=== PATIENT | male | born 1995 | race Caucasian/White ===

== ENCOUNTER 2018-03-01 15:29 | Emergency (ER) | payer BC ==
[~2018-03-01] VITALS: Ht 177.8 cm; Wt 122.7 kg
[2018-03-01 16:26] VITALS: Ht 177.8 cm; Wt 122.7 kg
[2018-03-01 17:08] LABS: BASOPHILS 0.3 % (0-2); EOSINOPHILS 0.1 % (0-7); HEMATOCRIT 48.7 % (42.0-54.0); HEMOGLOBIN 17.8 g/dL (13.5-17.5); IMMATURE GRANULOCYTES 0.3 % (0-5); LYMPHOCYTES 13.8 % (15-50); MCH 31.2 pg (26.0-34.0); MCHC 36.6 g/dL (31.0-37.0); MCV 85.3 fL (80.0-100.0); MEAN PLATELET VOLUME 10.8 fL (7.4-10.4); MONOCYTES 6.6 % (2-11); NEUTROPHILS 78.9 % (40-80); PLATELET COUNT 241 10x3/uL (130-400); RBC 5.71 10x6/uL (4.20-6.10); RDW 13.1 % (11.5-14.5); WBC 11.9 10x3/uL (4.8-10.8)
[2018-03-01 17:11] LABS: APPEARANCE CLEAR (CLEAR); BILIRUBIN NEGATIVE (NEGATIVE); COLOR DK YELLOW (YELLOW); GLUCOSE NEGATIVE (NEGATIVE); KETONE MODERATE mg/dL (NEGATIVE); NITRITE NEGATIVE (NEGATIVE); PROTEIN NEGATIVE (NEGATIVE); SPECIFIC GRAVITY 1.015 (1.005-1.020); UROBILINOGEN NORMAL (NORMAL)
[2018-03-01 17:14] LABS: BACTERIA FEW /hpf (NONE SEEN); EPITHELIAL CELLS OCC /hpf (0-5); MUCUS >1+ /lpf (NONE SEEN); WHITE CELLS - URINE 0-5 /hpf (0-5)
[2018-03-01 17:15] LABS: GRANULAR CAST RARE /lpf (NONE SEEN)
[2018-03-01 17:33] LABS: ALBUMIN 4.9 g/dL (3.4-5.0); ALKALINE PHOSPHATASE 51 U/L (46-116); ALT (SGPT) 54 U/L (10-68); BILIRUBIN - TOTAL 2.63 mg/dL (0.2-1.3); CALC OSMOLALITY 269 mosm/kg (275-300); CALCIUM 9.7 mg/dL (8.5-10.1); CHLORIDE - SERUM 97 mmol/L (98-107); CREATININE - SERUM 1.1 mg/dL (0.6-1.3); GLUCOSE 101 mg/dL (74-106); POTASSIUM - SERUM 3.5 mmol/L (3.5-5.1); PROTEIN - SERUM 8.3 g/dL (6.4-8.2); SODIUM 135 mmol/L (136-145); UREA NITROGEN 13 mg/dL (7-18); eGFR NON AFRICAN AMERICAN > 90 mL/min (90-120)
[2018-03-01] MEDS ORDERED: FLAGYL500 MG PO (22:14)
[2018-03-01] MEDS ORDERED: TYLENOL W/CODEI1 TAB PO (22:14)
[2018-03-01] MEDS ORDERED: ZOFRAN ODT4 MG/UDTAB PO (22:14)
[2018-03-01] MEDS ORDERED: PROTONIX40 MG PO (22:14)
[2018-03-01 22:47] VITALS: BP 143/88
== END 2018-03-01 22:35 | disposition home or self-care (01) ==
LOC: D.ER 15:29
PROVIDERS: Family Medicine
DX: R10.13 Epigastric pain (principal); R11.2 Nausea with vomiting, unspecified

== ENCOUNTER → 2018-03-12 06:28 | Outpatient (CLI) | payer BC ==
[2018-03-01 16:26] VITALS: BMI 38.8
[~2018-03-12 06:28] MED LIST: FLAGYL500 MG PO; NORCO 7.5/325 T1 TA1 PO; PROTONIX40 MG PO; TYLENOL W/CODEI1 TAB PO; ZOFRAN ODT4 MG/UDTAB PO; ZOFRAN4 MG PO
== END | disposition home or self-care (01) ==
LOC: D.US 06:28
DX: R11.2 Nausea with vomiting, unspecified (principal)

== ENCOUNTER → 2018-03-13 12:46 | Outpatient (CLI) | payer BC ==
[2018-03-01 16:26] VITALS: BMI 38.8
== END | disposition home or self-care (01) ==
LOC: D.NM 12:46
DX: R10.9 Unspecified abdominal pain (principal)

== ENCOUNTER 2018-03-15 02:24 | Emergency (ER) | payer BC ==
[~2018-03-15] VITALS: Ht 177.8 cm; Wt 117.3 kg
[~2018-03-15 02:24] MED LIST changes: -NORCO 7.5/325 T1 TA1 PO; -ZOFRAN4 MG PO
[2018-03-15 02:38] VITALS: Ht 177.8 cm; Wt 117.3 kg
[2018-03-15 03:37] LABS: BASOPHILS 0.4 % (0-2); EOSINOPHILS 0.4 % (0-7); HEMATOCRIT 47.5 % (42.0-54.0); HEMOGLOBIN 17.6 g/dL (13.5-17.5); IMMATURE GRANULOCYTES 0.2 % (0-5); LYMPHOCYTES 14.8 % (15-50); MCH 31.2 pg (26.0-34.0); MCHC 37.1 g/dL (31.0-37.0); MCV 84.1 fL (80.0-100.0); MEAN PLATELET VOLUME 12.5 fL (7.4-10.4); MONOCYTES 14.4 % (2-11); NEUTROPHILS 69.8 % (40-80); PLATELET COUNT 239 10x3/uL (130-400); RBC 5.65 10x6/uL (4.20-6.10); RDW 12.7 % (11.5-14.5); WBC 10.7 10x3/uL (4.8-10.8)
[2018-03-15 03:48] LABS: ALBUMIN 4.4 g/dL (3.4-5.0); BILIRUBIN - DIRECT 0.21 mg/dL (0.00-0.30); BILIRUBIN - INDIRECT 1.23 mg/dL (0.00-1.00); BILIRUBIN - TOTAL 1.44 mg/dL (0.2-1.3); PROTEIN - SERUM 7.4 g/dL (6.4-8.2)
[2018-03-15 03:56] LABS: AMORPHOUS SEDIMENT >1+ /lpf (NONE SEEN); APPEARANCE TURBID (CLEAR); BACTERIA NONE SEEN /hpf (NONE SEEN); BILIRUBIN 1+ (NEGATIVE); COLOR DK YELLOW (YELLOW); EPITHELIAL CELLS NSEEN /hpf (0-5); GLUCOSE NEGATIVE (NEGATIVE); KETONE NEGATIVE (NEGATIVE); NITRITE NEGATIVE (NEGATIVE); PROTEIN NEGATIVE (NEGATIVE); RED CELLS - URINE NONE SEEN /hpf (0-5); UROBILINOGEN NORMAL (NORMAL)
[2018-03-15] MEDS ORDERED: ZOFRAN4 MG PO (04:10)
[2018-03-15] MEDS ORDERED: NORCO 7.5/325 T1 TA1 PO (04:11)
[2018-03-15 04:36] VITALS: BP 118/72
== END 2018-03-15 04:38 | disposition home or self-care (01) ==
LOC: D.ER 02:24
PROVIDERS: Emergency Medicine
DX: R10.9 Unspecified abdominal pain (principal); R19.7 Diarrhea, unspecified; K82.9 Disease of gallbladder, unspecified; R11.10 Vomiting, unspecified

== ENCOUNTER 2018-05-07 11:29 | Observation (INO) | payer BC ==
[~2018-05-07] VITALS: Ht 177.8 cm; Wt 108.9 kg
[~2018-05-07 11:29] MED LIST changes: +NORCO 7.5/325 T1 TA1 PO; +ZOFRAN4 MG PO
[2018-05-07 12:22] LABS: APPEARANCE HAZY (CLEAR); BILIRUBIN NEGATIVE (NEGATIVE); COLOR DK YELLOW (YELLOW); GLUCOSE NEGATIVE (NEGATIVE); KETONE LARGE mg/dL (NEGATIVE); NITRITE NEGATIVE (NEGATIVE); PH 5.5 (5.0-6.0); PROTEIN TRACE mg/dL (NEGATIVE); SPECIFIC GRAVITY 1.025 (1.005-1.020); UROBILINOGEN NORMAL (NORMAL)
[2018-05-07 12:27] LABS: BACTERIA MODERATE /hpf (NONE SEEN); EPITHELIAL CELLS OCC /hpf (0-5); HYALINE CAST RARE /lpf (NONE SEEN); MUCUS >1+ /lpf (NONE SEEN); RED CELLS - URINE 0-5 /hpf (0-5); WHITE CELLS - URINE 0-5 /hpf (0-5)
[2018-05-07 12:28] LABS: BASOPHILS 0.2 % (0-2); EOSINOPHILS 0 % (0-7); HEMATOCRIT 45.6 % (42.0-54.0); HEMOGLOBIN 16.4 g/dL (13.5-17.5); IMMATURE GRANULOCYTES 0.2 % (0-5); LYMPHOCYTES 12.4 % (15-50); MCH 31.2 pg (26.0-34.0); MCV 86.9 fL (80.0-100.0); MEAN PLATELET VOLUME 10.8 fL (7.4-10.4); MONOCYTES 7.8 % (2-11); NEUTROPHILS 79.4 % (40-80); PLATELET COUNT 223 10x3/uL (130-400); RBC 5.25 10x6/uL (4.20-6.10); RDW 13.6 % (11.5-14.5); WBC 8.9 10x3/uL (4.8-10.8)
[2018-05-07 12:44] LABS: ALBUMIN 4.7 g/dL (3.4-5.0); ALKALINE PHOSPHATASE 58 U/L (46-116); ALT (SGPT) 161 U/L (10-68); AMYLASE - SERUM 44 U/L (25-115); BILIRUBIN - TOTAL 1.91 mg/dL (0.2-1.3); CALC OSMOLALITY 271 mosm/kg (275-300); CALCIUM 10.1 mg/dL (8.5-10.1); CARBON DIOXIDE 22.7 mmol/L (21.0-32.0); CHLORIDE - SERUM 96 mmol/L (98-107); CREATININE - SERUM 0.9 mg/dL (0.6-1.3); GLUCOSE 90 mg/dL (74-106); LIPASE 82 U/L (73-393); POTASSIUM - SERUM 3.6 mmol/L (3.5-5.1); PROTEIN - SERUM 8.1 g/dL (6.4-8.2); SODIUM 137 mmol/L (136-145); UREA NITROGEN 7 mg/dL (7-18); eGFR NON AFRICAN AMERICAN > 90 mL/min (90-120)
[2018-05-07] MEDS ORDERED: ZOFRAN ODT4 MG/UDTAB PO (14:31)
[2018-05-07 20:30] VITALS: BP 168/99
[2018-05-07 21:44] VITALS: BP 156/100; BMI 34.5
[2018-05-08 07:21] VITALS: BP 109/64
[2018-05-08 11:43] VITALS: BP 137/74
[2018-05-08 13:13] VITALS: Ht 177.8 cm; Wt 108.9 kg
[2018-05-08 15:30] VITALS: BP 144/66
[2018-05-08 17:32] LABS: ERYTHROCYTE SEDIMENTATION RATE 2 mm/hr (0-15)
[2018-05-08 20:00] VITALS: BP 137/85
[2018-05-08 23:12] VITALS: BP 134/72
[2018-05-09 04:00] VITALS: BP 139/79
[2018-05-09 07:23] LABS: BASOPHILS 0.2 % (0-2); EOSINOPHILS 0.4 % (0-7); HEMATOCRIT 41.7 % (42.0-54.0); HEMOGLOBIN 14.6 g/dL (13.5-17.5); IMMATURE GRANULOCYTES 0.4 % (0-5); MCH 30.5 pg (26.0-34.0); MCV 87.1 fL (80.0-100.0); MONOCYTES 7.6 % (2-11); NEUTROPHILS 74.4 % (40-80); PLATELET COUNT 179 10x3/uL (130-400); RBC 4.79 10x6/uL (4.20-6.10); RDW 13.7 % (11.5-14.5)
[2018-05-09 07:28] LABS: WBC 5.3 10x3/uL (4.8-10.8)
[2018-05-09 07:41] LABS: ALBUMIN 3.6 g/dL (3.4-5.0); ALKALINE PHOSPHATASE 50 U/L (46-116); BILIRUBIN - TOTAL 1.18 mg/dL (0.2-1.3); CALCIUM 9.2 mg/dL (8.5-10.1); CHLORIDE - SERUM 100 mmol/L (98-107); CREATININE - SERUM 0.8 mg/dL (0.6-1.3); GLUCOSE 116 mg/dL (74-106); POTASSIUM - SERUM 3.2 mmol/L (3.5-5.1); PROTEIN - SERUM 6.5 g/dL (6.4-8.2); SODIUM 137 mmol/L (136-145); eGFR NON AFRICAN AMERICAN > 90 mL/min (90-120)
[2018-05-09 07:42] LABS: ALT (SGPT) 106 U/L (10-68); CALC OSMOLALITY 270 mosm/kg (275-300); CARBON DIOXIDE 29.6 mmol/L (21.0-32.0); UREA NITROGEN 1 mg/dL (7-18)
[2018-05-09 08:00] VITALS: BP 124/55
[2018-05-09] MEDS ORDERED: LEVAQUIN750 MG PO (09:42)
[2018-05-09] MEDS ORDERED: FLAGYL500 MG PO (09:43)
[2018-05-12 15:21] LABS: MITOCHONDRIAL ANTIBODY 5.2 Units (0.0-20.0); SMOOTH MUSCLE ABS (ACTIN) 16 Units (0-19)
[2018-05-14 16:18] LABS: ANA REFLEX - DIRECT QNS (())
== END 2018-05-09 11:48 | disposition home or self-care (01) ==
LOC: D.ER 11:29 → D.EDHOLD 15:54 → D.M3 15:54 → OBSVTIME 15:55 → D.M3 19:15
PROVIDERS: Emergency Medicine; Internal Medicine Gastroenterology; Internal Medicine Nephrology
DX: K52.9 Noninfective gastroenteritis and colitis, unspecified (principal); K29.70 Gastritis, unspecified, without bleeding; K59.00 Constipation, unspecified; R74.8 Abnormal levels of other serum enzymes